=== PATIENT | male | born 1985 | race African-American/Black ===

== ENCOUNTER 2018-08-26 14:50 | Emergency (ER) | payer BC ==
--- NOTE | 2018-08-26 15:51 | ER Document Report ---
ED Medical Screen (RME) - General Chief Complaint: Urinary Problem Stated Complaint: BLOOD WITH URINATION Time Seen by Provider: 08/26/18 15:44 Notes: Patient says he is noting blood in his urine and discomfort with urination. He says he was diagnosed with the flu on Tuesday and put on Tamiflu. He took the first dose of that medicine Tuesday evening. About 2 AM morning, patient noticed blood in his urine and stinging when he urinated. The bleeding stopped but the stinging persisted until today when he had a recurrent bleeding. He went to a local urgent care and they advised him to come here for further evaluation. Patient says he is having stinging after he urinates. Denies having any discharge or pus. Had this once before about 2 or 3 years ago. He was seen by a doctor in [place] and his symptoms subsided after 24 hours and never came back. Patient denies any fevers. TRAVEL OUTSIDE OF THE [place] IN LAST 30 DAYS: No - Related Data Allergies/Adverse Reactions: No Known Allergies Allergy (Unverified 08/10/13 09:23) Past Medical History Endocrine Medical History: Reports: Hx Diabetes Mellitus Type 2 - Immunizations Hx Diphtheria, Pertussis, Tetanus Vaccination: No - unknown Physical Exam - Vital signs Vitals: Temp Pulse Resp BP Pulse Ox 98.3 F 78 20 124/86 H 97 08/26/18 15:02 08/26/18 15:02 08/26/18 15:02 08/26/18 15:02 08/26/18 15:02 Course - Vital Signs Vital signs: Temp Pulse Resp BP Pulse Ox 98.3 F 78 20 124/86 H 97 08/26/18 15:02 08/26/18 15:02 08/26/18 15:02 08/26/18 15:02 08/26/18 15:02 Doctor's Discharge - Discharge Referrals: JH CURRAN PA [Primary Care Provider] - Follow up as needed
[2018-08-26 16:27] LABS: APPEARANCE,URINE SLIGHTLY-CLOUDY; BILIRUBIN,URINE NEGATIVE (NEGATIVE); COLOR,URINE YELLOW; GLUCOSE, URINE NEGATIVE (NEGATIVE); KETONES,URINE NEGATIVE (NEGATIVE); LEUKOCYTE ESTERASE,URINE NEGATIVE (NEGATIVE); NITRITE,URINE NEGATIVE (NEGATIVE); PROTEIN,URINE 30 mg/dL (NEGATIVE); URINE SPECIFIC GRAVITY 1.015
[2018-08-26 16:28] LABS: ABSOLUTE EOSINOPHILS # (AUTO) 0.1 10^3/uL (0.0-0.6); ABSOLUTE MONOCYTES (AUTO) 0.9 10^3/uL (0.1-1.4); ABSOLUTE NEUT (AUTO) 6.9 10^3/uL (1.7-8.2); BASOPHILS % (AUTO) 0.2 % (0-2); EOSINOPHILS % (AUTO) 0.5 % (0-6); HEMATOCRIT 45.1 % (37.9-51.0); HEMOGLOBIN 15.3 g/dL (13.5-17.0); LYMPHOCYTES % (AUTO) 27.5 % (13-45); MEAN CORPUSCULAR HEMOGLOBIN 27.9 pg (27.0-33.4); MEAN CORPUSCULAR VOLUME 82 fl (80-97); MONOCYTES % (AUTO) 8.3 % (3-13); PLATELET COUNT 281 10^3/uL (150-450); RED BLOOD COUNT 5.49 10^6/uL (4.35-5.55); RED CELL DISTRIBUTION WIDTH 12.6 % (11.5-14.0); SEGMENTED NEUTROPHILS % (AUTO) 63.5 % (42-78); TOTAL CELLS COUNTED % (AUTO) 100 %; WHITE BLOOD COUNT 10.8 10^3/uL (4.0-10.5)
[2018-08-26 16:35] LABS: ALANINE AMINOTRANSFERASE 95 U/L (21-72); ALBUMIN 4.3 g/dL (3.5-5.0); ALKALINE PHOSPHATASE 102 U/L (38-126); ANION GAP 10 (5-19); ASPARTATE AMINO TRANSFERASE 94 U/L (17-59); BILIRUBIN,DIRECT 0.3 mg/dL (0.0-0.4); BILIRUBIN,TOTAL 1.2 mg/dL (0.2-1.3); BLOOD UREA NITROGEN 7 mg/dL (7-20); CALCIUM 8.8 mg/dL (8.4-10.2); CARBON DIOXIDE 32 mmol/L (22-30); CHLORIDE 101 mmol/L (98-107); GLUCOSE 94 mg/dL (75-110); POTASSIUM 4.1 mmol/L (3.6-5.0); SODIUM 142.5 mmol/L (137-145); TOTAL PROTEIN 7.9 g/dL (6.3-8.2)
--- NOTE | 2018-08-26 17:17 | ER Document Report ---
ED GI/ - General Chief Complaint: Urinary Problem Stated Complaint: BLOOD WITH URINATION Time Seen by Provider: 08/26/18 15:44 Mode of Arrival: Ambulatory Information source: Patient Notes: Patient is a 32-year-old male who presents to the emergency department with chief complaint of blood in his urine. Patient reports he first noticed this yesterday. He denies any pain or trauma to the area. He denies any dysuria, urinary frequency or fevers. He does report he has had a similar episode happened approximately 2 years ago, he saw his primary care provider in the hematuria resolves on its own within 1-2 days. He denies possibility of chlamydia or gonorrhea infection as he states that he has not sexually active. TRAVEL OUTSIDE OF THE [place] IN LAST 30 DAYS: No - Related Data Allergies/Adverse Reactions: No Known Allergies Allergy (Unverified 08/10/13 09:23) Past Medical History - General Information source: Patient - Social History Smoking Status: Never Smoker Chew tobacco use (# tins/day): No Frequency of alcohol use: None Drug Abuse: None Family History: Reviewed & Not Pertinent Patient has suicidal ideation: No Patient has homicidal ideation: No Endocrine Medical History: Reports: Hx Diabetes Mellitus Type 2 Renal/ Medical History: Denies: Hx Peritoneal Dialysis Musculoskeletal Medical History: Reports Hx Arthritis Surgical Hx: Negative - Immunizations Hx Diphtheria, Pertussis, Tetanus Vaccination: No - unknown Review of Systems - Review of Systems Constitutional: No symptoms reported EENT: No symptoms reported Cardiovascular: No symptoms reported Respiratory: No symptoms reported Gastrointestinal: No symptoms reported Genitourinary: Hematuria Male Genitourinary: No symptoms reported Musculoskeletal: No symptoms reported Skin: No symptoms reported Hematologic/Lymphatic: No symptoms reported Neurological/Psychological: No symptoms reported Physical Exam - Vital signs Vitals: Temp Pulse Resp BP Pulse Ox 98.3 F 78 20 124/86 H 97 08/26/18 15:02 08/26/18 15:02 08/26/18 15:02 08/26/18 15:02 08/26/18 15:02 - Notes Notes: PHYSICAL EXAMINATION: GENERAL: Well-appearing, well-nourished and in no acute distress. HEAD: Atraumatic, normocephalic. EYES: Pupils equal round and reactive to light, extraocular movements intact, sclera anicteric, conjunctiva are normal. ENT: Nares patent, oropharynx clear without exudates. Moist mucous membranes. NECK: Normal range of motion, supple without lymphadenopathy LUNGS: Breath sounds clear to auscultation bilaterally and equal. No wheezes rales or rhonchi. HEART: Regular rate and rhythm without murmurs ABDOMEN: Soft, nontender, nondistended abdomen. No guarding, no rebound. No masses appreciated. Musculoskeletal: Normal range of motion, no pitting or edema. No cyanosis. NEUROLOGICAL: Cranial nerves grossly intact. Normal speech, normal gait. Normal sensory, motor exams PSYCH: Normal mood, normal affect. SKIN: Warm, Dry, normal turgor, no rashes or lesions noted. Course - Re-evaluation Re-evalutation: CBC and CMP are unremarkable. Patient's urine does not appear to be infected but does have hematuria present. Patient is asymptomatic and has no acute complaints. Patient states that he went to the urgent care where he seeks most of his medical treatment and they referred him to the ER to further evaluate the hematuria. I discussed this with my attending physician who recommends that since patient has no symptoms, we will culture the urine and refer patient to a urologist. Patient given strict ED return precautions. - Vital Signs Vital signs: Temp Pulse Resp BP Pulse Ox 98.7 F 86 20 133/84 H 99 08/26/18 17:23 08/26/18 17:23 08/26/18 15:02 08/26/18 17:23 08/26/18 17:23 - Laboratory Result Diagrams: 08/26/18 16:00 08/26/18 16:00 Laboratory results interpreted by me: 08/26/18 08/26/18 08/26/18 16:00 16:00 16:00 WBC 10.8 H Carbon Dioxide 32 H AST 94 H ALT 95 H Urine Protein 30 H Urine Blood LARGE H Urine Urobilinogen 4.0 H Discharge - Discharge Clinical Impression: Hematuria Qualifiers: Hematuria type: unspecified type Qualified Code(s): R31.9 - Hematuria, unspecified Condition: Stable Disposition: HOME, SELF-CARE Additional Instructions: Hematuria Hematuria, or blood in your urine, can be caused by minor medical problems, such as a bladder infection, or by more serious medical conditions, such as kidney stones or even tumors of the bladder or kidney. If the cause of the hematuria is known (such as a bladder infection) and can be treated, it may not need further evaluation. If the cause is not known, it will usually require further evaluation by a specialist, such as a urologist. In particular, unexplained hematuria in the older patient must be evaluated to rule out a serious condition, such as a bladder or kidney tumor. If the hematuria worsens or you are passing clots and then are unable to urinate, you should be re-evaluated. A catheter may need to be placed in the bladder to permit passage of urine. If you develop high fever, severe pain, or other new or worsening symptoms, return to the Emergency Department for re- evaluation. Please call the urologist office and set up an appointment for a follow-up for the blood in your urine. Return to the emergency department if you have symptoms as outlined above such as passing large clots of blood or unable to uri zee. Please also return if you develop a high fever, severe pain or any new or worsening symptoms. Referrals: [facility] [Provider Group] - Follow up as needed
[2018-08-26 17:25] VITALS: BP 133/84
== END 2018-08-26 17:27 | disposition home or self-care (01) ==
LOC: ER 14:50
DX: R31.0 Gross hematuria (principal); E11.9 Type 2 diabetes mellitus without complications
CPT/HCPCS: 36415; 80053; 81001; 85025; 87086; 99283

== ENCOUNTER 2020-04-18 20:05 | Emergency (ER) | payer BC ==
--- NOTE | 2020-04-18 20:15 | ER Document Report ---
ED Medical Screen (RME) - General Chief Complaint: Boil Stated Complaint: BOIL BLEEDING FOR HOURS Time Seen by Provider: 04/18/20 20:10 Notes: Patient is a 34-year-old male with a history of prediabetes and gout who presents emergency department with a chief complaint of purulent drainage from his anal area. Patient states that he thought he had a hemorrhoid, but is now having purulent drainage from the area. Patient states that he felt a pop earlier today and the area has been bleeding ever since. Describes it as a "milky drainage" when he wipes. Patient states that he has been using Tucks pads and sits baths to help with his symptoms. Denies any fever. He also bought Preparation H today. Exam: Soft, nontender abdomen. Exam limited due to patient in triage. I have greeted and performed a rapid initial assessment of this patient. A comprehensive ED assessment and evaluation of the patient, analysis of test results and completion of medical decision making process will be conducted by an additional ED providers. TRAVEL OUTSIDE OF THE [place] IN LAST 30 DAYS: No - Related Data Allergies/Adverse Reactions: No Known Allergies Allergy (Unverified 08/10/13 09:23) Home Medications: Metformin. allpurinol Past Medical History - Social History Chew tobacco use (# tins/day): No Frequency of alcohol use: None Drug Abuse: None Endocrine Medical History: Reports: Hx Diabetes Mellitus Type 2 Renal/ Medical History: Denies: Hx Peritoneal Dialysis Musculoskeltal Medical History: Reports Hx Arthritis - Immunizations Hx Diphtheria, Pertussis, Tetanus Vaccination: No - unknown
[2020-04-18 20:46] LABS: ABSOLUTE BASOPHILS # (AUTO) 0.1 10^3/uL (0.0-0.2); ABSOLUTE EOSINOPHILS # (AUTO) 0.2 10^3/uL (0.0-0.6); ABSOLUTE LYMPHOCYTES (AUTO) 3.5 10^3/uL (0.5-4.7); ABSOLUTE MONOCYTES (AUTO) 1.3 10^3/uL (0.1-1.4); ABSOLUTE NEUT (AUTO) 9.4 10^3/uL (1.7-8.2); BASOPHILS % (AUTO) 0.5 % (0-2); EOSINOPHILS % (AUTO) 1.4 % (0-6); HEMATOCRIT 40.5 % (37.9-51.0); HEMOGLOBIN 13.6 g/dL (13.5-17.0); MEAN CORPUSCULAR HEMOGLOBIN 27.7 pg (27.0-33.4); MEAN CORPUSCULAR HGB CONC 33.7 g/dL (32.0-36.0); MEAN CORPUSCULAR VOLUME 82 fl (80-97); MONOCYTES % (AUTO) 9.2 % (3-13); PLATELET COUNT 288 10^3/uL (150-450); RED BLOOD COUNT 4.93 10^6/uL (4.35-5.55); SEGMENTED NEUTROPHILS % (AUTO) 64.9 % (42-78); TOTAL CELLS COUNTED % (AUTO) 100 %; WHITE BLOOD COUNT 14.5 10^3/uL (4.0-10.5)
--- NOTE | 2020-04-18 22:48 | ER Document Report ---
ED GI Bleed / Rectal Pain - General Chief Complaint: Abscess Stated Complaint: BOIL BLEEDING FOR HOURS Time Seen by Provider: 04/18/20 20:10 Primary Care Provider: ISAURO LOWE MD [ACTIVE STAFF] - Follow up as needed Mode of Arrival: Ambulatory Information source: Patient Notes: 34-year-old male past medical history significant for occasional hemorrhoids presents emergency room complaining of rectal pain that started on Tuesday. States pain proceeded to progressively get worse since Tuesday. Today he noticed moderate amount of bright red blood in his underwear as well as blood with his stool and blood when he wiped today. States his rectal pain has resolved after the bleeding started. He denies any rectal trauma. Denies any rectal sex. Does admit to some hard stools over the past week. TRAVEL OUTSIDE OF THE [place] IN LAST 30 DAYS: No - Related Data Allergies/Adverse Reactions: No Known Allergies Allergy (Unverified 08/10/13 09:23) Home Medications: Metformin. allpurinol Past Medical History - General Information source: Patient - Social History Smoking Status: Never Smoker Chew tobacco use (# tins/day): No Frequency of alcohol use: None Drug Abuse: None Family History: Reviewed & Not Pertinent Endocrine Medical History: Reports: Hx Diabetes Mellitus Type 2 Renal/ Medical History: Denies: Hx Peritoneal Dialysis Musculoskeletal Medical History: Reports Hx Arthritis - Immunizations Hx Diphtheria, Pertussis, Tetanus Vaccination: No - unknown Review of Systems - Review of Systems Constitutional: No symptoms reported EENT: No symptoms reported Cardiovascular: No symptoms reported Respiratory: No symptoms reported Gastrointestinal: Rectal bleeding Genitourinary: No symptoms reported Musculoskeletal: No symptoms reported Skin: No symptoms reported Neurological/Psychological: No symptoms reported -: Yes All other systems reviewed and negative Physical Exam - Vital signs Vitals: Temp Pulse Resp BP Pulse Ox 98.4 F 76 18 141/93 H 96 04/18/20 20:15 04/18/20 20:15 04/18/20 20:15 04/18/20 20:15 04/18/20 20:15 - General General appearance: Appears well, Alert In distress: Mild - HEENT Head: Normocephalic, Atraumatic Eyes: Normal Pupils: PERRL - Respiratory Respiratory status: No respiratory distress Chest status: Nontender Breath sounds: Normal Chest palpation: Normal - Cardiovascular Rhythm: Regular Heart sounds: Normal auscultation Murmur: No - Abdominal Inspection: Normal Distension: No distension Bowel sounds: Normal Tenderness: Nontender Organomegaly: No organomegaly - Rectal Tenderness: No Stool: Heme negative Hemorrhoids: External - There is a nonthrombosed external hemorrhoid that has ruptured. There is no active bleeding. Tenderness on palpation. Normal rectal tone. No rectal bleeding noted. - Neurological Neuro grossly intact: Yes Cognition: Normal Orientation: AAOx4 [place] Coma Scale Eye Opening: Spontaneous [place] Coma Scale Verbal: Oriented [place] Coma Scale Motor: Obeys Commands [place] Coma Scale Total: 15 Speech: Normal Motor strength normal: LUE, RUE, LLE, RLE Sensory: Normal - Skin Skin Temperature: Warm Skin Moisture: Dry Skin Color: Normal Course - Re-evaluation Re-evalutation: 04/18/20 23:05 Patient with no active bleeding. Patient does have an external hemorrhoid that is not actively bleeding. It is mildly tender to palpation. Otherwise negative rectal exam. Patient was counseled to use medication as prescribed. Outpatient follow-up with general surgery as needed for recurrent hemorrhoids. Increase fluids. [id number] Colace to prevent hard stools. Patient was given strict return to the emergency room guidelines. Return for any new or worsening symptoms. All questions were answered. Patient verbalized understanding and agrees with plan of care. 04/19/20 00:22 - Vital Signs Vital signs: Temp Pulse Resp BP Pulse Ox 97.9 F 63 16 154/86 H 100 04/18/20 23:18 04/18/20 23:18 04/18/20 23:18 04/18/20 23:18 04/18/20 23:18 - Laboratory Result Diagrams: 04/18/20 20:31 Laboratory results interpreted by me: 04/18/20 20:31 WBC 14.5 H Absolute Neuts (auto) 9.4 H Discharge - Discharge Clinical Impression: External hemorrhoids without complication Condition: Stable Disposition: HOME, SELF-CARE Instructions: HC Hemorrhoid Cream ([facility]), Hemorrhoids ([facility]) Additional Instructions: Use cream as prescribed. Increase fiber and fluids. [id number] Colace to prevent hard stools. Outpatient follow-up with general surgery as discussed. R eturn to the emergency room for any new or worsening symptoms. Prescriptions: Hydrocortisone/Pramoxine [Proctofoam-Hc Foam] 1 applic RC BID #1 tube Referrals: ISAURO LOWE MD [ACTIVE STAFF] - Follow up as needed
[2020-04-18 23:19] VITALS: BP 154/86
== END 2020-04-18 23:20 | disposition home or self-care (01) ==
LOC: ER 20:05
DX: K64.4 Residual hemorrhoidal skin tags (principal); K62.5 Hemorrhage of anus and rectum; E11.9 Type 2 diabetes mellitus without complications; Z79.84 Long term (current) use of oral hypoglycemic drugs; Z79.899 Other long term (current) drug therapy
CPT/HCPCS: 36415; 85025; 99283